=== PATIENT | female | born 1995 | race Caucasian/White ===

== ENCOUNTER 2023-09-14 10:56 | Inpatient (IN) | payer OTHER ==
[2023-09-14 12:05] LABS: Basophils % (A) 0 %; Eosinophils # (A) 0.1 k/uL (0-0.7); Eosinophils % (A) 1 %; HCT 32.3 % (34.0-46.0); HGB 10.6 gm/dL (11.4-16.0); Hypochromasia Slight; Lymphocytes % (A) 20 %; MCH 27.4 pg (25.0-35.0); MCHC 32.7 g/dL (31.0-37.0); MCV 83.6 fL (80.0-100.0); Mean Platelet Volume 9.3; Monocytes # (A) 0.5 k/uL (0-1.0); Monocytes % (A) 5 %; Neutrophils # (A) 7.5 k/uL (1.3-7.7); Neutrophils % (A) 73 %; Platelet Count 286 k/uL (150-450); Poikilocytosis Slight; RBC 3.87 m/uL (3.80-5.40); RDW 14.4 % (11.5-15.5); WBC 10.3 k/uL (3.8-10.6)
[2023-09-14 12:15] LABS: ALT 14 U/L (4-34); AST 21 U/L (14-36); African American GFR (CKD) >90 (>60 ml/min/1.73 sqM); Blood Urea Nitrogen 6 mg/dL (7-17); LDH 195 U/L (120-246); Non-African American GFR(CKD) >90 (>60 ml/min/1.73 sqM); Uric Acid 5.8 mg/dL (3.7-7.4)
[2023-09-14 12:20] LABS: Creatinine,Urine Random 31.8 mg/dL; Protein/Creatinine Ratio,Urine 0.377
[2023-09-14 12:53] LABS: Color,Urine Light Yellow
[2023-09-14 12:54] LABS: Appearance,Urine Clear (Clear)
[2023-09-14 13:03] LABS: Specific Gravity,Urine 1.003 (1.001-1.035)
[2023-09-14 13:09] LABS: Bilirubin,Urine Negative (Negative); Blood,Urine Negative (Negative); Glucose,Urine (UA) Negative (Negative); Ketones,Urine Negative (Negative); PH, Urine 6.5 (5.0-8.0); Protein,Urine Negative (Negative)
[2023-09-14 13:10] LABS: Leukocyte Esterase,Urine Negative (Negative); Nitrite,Urine Negative (Negative); Urobilinogen,Urine <2.0 mg/dL (<2.0)
[2023-09-14] MEDS ORDERED: LIDOCAINE 0.5% (PF) 5 MG/ML (50 ML SDV) SQ PRN (15:03)
[2023-09-14] MEDS ORDERED: TRANEXAMIC 1,000 MG/100ML-NACL 1,000 MG in EMPTY BAG 1 BAG IV PRN (15:03)
[2023-09-14] MEDS ORDERED: miSOPROStoL 200 MCG TAB PO PRN (15:03)
[2023-09-14] MEDS ORDERED: METHYLERGONOVINE 0.2 MG/ML 1 ML AMP IM PRN (15:03)
[2023-09-14] MEDS ORDERED: OXYTOCIN 10 UNIT/ML 1 ML VIAL IM PRN (15:03)
[2023-09-14] MEDS ORDERED: TERBUTALINE 1 MG/ML VIAL SQ PRN (15:03)
[2023-09-14] MEDS ORDERED: CARBOPROST TROMETHAMINE 250 MCG/ML 1 ML AMP IM PRN (15:03)
[2023-09-14] MEDS ORDERED: OXYTOCIN 30 UNITS/500 ML NS 30 UNIT in SALINE 1 500ML.BAG IV SCH (16:00)
[2023-09-14] MEDS: LACTATED RINGERS 1,000 ML IV SCH (21:42)
[2023-09-15] MEDS: LACTATED RINGERS 1,000 ML IV SCH ×4 (02:28→16:03)
--- NOTE | 2023-09-15 08:46 | P.HPOB ---
History of Present Illness H&P Date: 09/15/23 Chief Complaint: Medical induction of labor Ms. Hilliard is a 27 year old at 41 weeks and 2 days gestationan with EDC of 09/06/2023 (by LMP consistent with 12 week US) who presents for medical induction of labor for pre-eclampsia without severe features and post-dates. The patient denies headache, visual disturbances, and RUQ pain. PIH labs were remarkable for a P:C ratio of 0.3 but otherwise within normal limits. Blood pressures overnight since admission have been normotensive to mild-range. work-up: blood type O positive, antibody negative, rubella immune, HBsAg negative, HIV negative, gonorrhea negative, chlamydia negative, 1 hour GTT within normal limits, GBS negative. s/p TDap on 07/13/2023. Past Medical History Past Medical History: No Reported History History of Any Multi-Drug Resistant Organisms: None Reported Past Surgical History: No Surgical Hx Reported, Ear Surgery, Tonsillectomy Past Psychological History: No Psychological Hx Reported Smoking Status: Never smoker Past Alcohol Use History: None Reported Past Drug Use History: None Reported Medications and Allergies Home Medications Medication Instructions Recorded Confirmed Type No Known Home Medications 09/14/23 09/14/23 History Allergies Allergy/AdvReac Type Severity Reaction Status Date / Time Penicillins Allergy Rash/Hives Verified 09/14/23 11:33 Exam Vital Signs Temp Pulse Resp BP Pulse Ox 09/14/23 14:29 98.5 F 88 16 09/14/23 11:32 97.8 F 88 16 136/82 99 Intake and Output 09/14/23 09/15/23 09/15/23 22:59 06:59 14:59 Other: # Voids 2 1 Focused physical exam is performed. This is a healthy-appearing in no apparent distress. Breathing is non-labored. Abdomen is gravid and non-tender. Cervical exam is 3 cm, 70 effacement, -2 station. AROM is undertaken with minimal fluid noted. Extremeties non-tender and non-edematous. heart tones are Category I and tocometer is not graphing contractions well at this time. Results Result Diagrams: 09/14/23 11:45 09/14/23 11:45 Abnormal Lab Results - Last 24 Hours (Table) 09/14/23 09/14/23 Range/Units 11:45 11:45 Hgb 10.6 L (11.4-16.0) gm/dL Hct 32.3 L (34.0-46.0) % BUN 6 L (7-17) mg/dL Assessment and Plan Assessment: 27 year old at 41 weeks and 2 days being medically induced for pre- eclampsia without severe features and post-dates Plan: Admit, NPO, mIVF, pitocin per protocol, epidural prn, continuous EFM and tocometer, close monitoring of patient Time with Patient: Less than 30
[2023-09-15] MEDS ORDERED: NALBUPHINE 10 MG/ML (10 ML MDV) IV PRN (12:38)
[2023-09-15] MEDS ORDERED: ROPIVACAINE 5 MG/ML 30 ML VIAL ONE (15:27)
[2023-09-15] MEDS ORDERED: fentaNYL (PF) 50 MCG/ML 5 ML AMP ONE (15:27)
[2023-09-15] MEDS ORDERED: SODIUM CHLORIDE 0.9% 250 ML BAG ONE (15:27)
--- NOTE | 2023-09-15 16:08 | P.ANPRN ---
Procedure Note - Anesthesia - Epidural/Spinal Epidural Continuous Date of Procedure: 09/15/23 Procedure Start Time: 15:34 Procedure Stop Time: 15:45 Location of Patient: OB Indication: Analgesia, Requested by Surgeon Sedation Type: Sedate with meaningful contact maintained Preparation: Sterile Dressing Number of Attempts: 1 (At L1-L2 interspinous space) Position: Sitting Catheter Depth at Skin (cm): 12 (LOSS of resistance 7 cm) Catheter: Indwelling Needle Guage: 18 Injectate: 5ML of 1.5% lidocaine mixed with epinephrine 1:200K Blood Aspirated: No Pain Paresthesia on Injection Noted: No Events: Uneventful and Well Tolerated
[2023-09-15] MEDS ORDERED: ROPIVACAINE 225 MG, fentaNYL (PF). 450 MCG in SODIUM CHLORIDE 0.9% 171 ML EPIDURAL ONE (16:53)
[2023-09-15] MEDS ORDERED: miSOPROStoL 200 MCG TAB PO PRN ×2 (20:33→20:51)
[2023-09-15] MEDS ORDERED: METHYLERGONOVINE 0.2 MG/ML 1 ML AMP IM PRN ×2 (20:33→20:51)
[2023-09-15] MEDS ORDERED: CITRIC ACID-SODIUM CITRATE 15 ML CUP PO ONE ×2 (20:33→20:51)
[2023-09-15] MEDS ORDERED: TRANEXAMIC 1,000 MG/100ML-NACL 1,000 MG in EMPTY BAG 1 BAG IV PRN ×2 (20:33→20:51)
[2023-09-15] MEDS ORDERED: OXYTOCIN 10 UNIT/ML 1 ML VIAL IM PRN ×2 (20:33→20:51)
[2023-09-15] MEDS ORDERED: CARBOPROST TROMETHAMINE 250 MCG/ML 1 ML AMP IM PRN ×2 (20:33→20:51)
[2023-09-15] MEDS ORDERED: CLINDAMYCIN 900 MG in DEXTROSE 5% IN WATER 50 ML IVPB ONE ×2 (20:51)
[2023-09-15] MEDS ORDERED: AZITHROMYCIN 500 MG in SODIUM CHLORIDE 0.9% 250 ML IVPB STA (20:53)
[2023-09-15] MEDS ORDERED: ONDANSETRON 4 MG/2 ML VIAL ONE (21:03)
[2023-09-15] MEDS ORDERED: OXYTOCIN 30 UNITS/500 ML NS BAG IV ONE (21:03)
[2023-09-15] MEDS ORDERED: KETOROLAC 15 MG/ML 1 ML VIAL ONE (21:03)
[2023-09-15] MEDS ORDERED: MORPHINE SULFATE (PF) 0.3 MG/0.3 ML SYR ONE (21:03)
[2023-09-15] MEDS ORDERED: PHENYLEPHRINE 10 MG/ML VIAL ONE (21:03)
[2023-09-15] MEDS ORDERED: GENTAMICIN 300 MG in SODIUM CHLORIDE 0.9% 100 ML IVPB ONE (21:30)
[2023-09-15] MEDS ORDERED: SIMETHICONE 80 MG CHEWABLE PO PRN (22:03)
[2023-09-15] MEDS ORDERED: NALOXONE 0.4 MG/ML 1 ML VIAL IV PRN (22:03)
[2023-09-15] MEDS ORDERED: diphenhydrAMINE 50 MG CAP PO PRN (22:03)
[2023-09-15] MEDS ORDERED: METOCLOPRAMIDE 5 MG/ML 2 ML VIAL IVP PRN (22:03)
[2023-09-15] MEDS ORDERED: ONDANSETRON 4 MG/2 ML VIAL IVP PRN (22:03)
[2023-09-15] MEDS ORDERED: diphenhydrAMINE 50 MG/ML 1 ML VIAL IVP PRN ×2 (22:03)
[2023-09-15] MEDS ORDERED: diphenhydrAMINE 25 MG CAP PO PRN (22:03)
[2023-09-15] MEDS ORDERED: ZOLPIDEM 5 MG TAB PO PRN (22:03)
--- NOTE | 2023-09-15 22:03 | P.OP ---
Date of Procedure: 09/15/23 Preoperative Diagnosis: 1. Term IUP at 41 weeks 2. Gestational Hypertension 3. Persistent Category II Heart Tones Remote from Delivery Postoperative Diagnosis: Same Procedure(s) Performed: Primary Lower Transverse Section Implants: None Anesthesia: epidural Surgeon: Jillian Jo Psychiatric Social Worker Supervisor #1: Dina Ramos Estimated Blood Loss (ml): 375 IV fluids (ml): 1,000 Urine output (ml): 400 (clear yellow urine) Pathology: none sent Condition: stable Disposition: floor Indications for Procedure: Ms. Hilliard is a 27 year old at 41 weeks and 2 days who was being medically induced for newly diagnosed pre-eclampsia without severe features and post-dates. She had a labor dystocia and had been 7 centimeters for over 2 hours. There were persistent Category II Heart Tones remote from delivery. section was recommended for maternal and well-being. The risks, benefits, and alternatives to section were discussed with the patient including risk of bleeding, infection, damage to surrounding structures including bladder/bowels/ureters, and post-operative VTE. The patient understands these risks and desires to proceed with section. Operative Findings: Colorless amniotic fluid noted. Viable male infant in right occiput transverse presentation. Apgars at 1 and 5 minutes were 8,9 respectively. Weight was 7 pounds and 15 ounces (3790 grams). Normal uterus, fallopian tubes, and ovaries. Description of Procedure: The patient was taken to the operating room where spinal anesthesia was found to be adequate. IV Gentamicin, Clindamycin, and Ancef were given for infection prophylaxis. Vaginal prep was performed prior to the surgery. She was prepared and draped in the dorsal supine position with a leftward tilt. A Pfannenstiel skin incision was made with the scalpel. The incision was carried down to the fascia with a bovie. The fascia was incised and extended laterally with Arango scissors. The superior aspect of the fascia was grasped with Bari clamps. The underlying rectus muscle was dissected off sharply with Arango scissors. In a similar fashion, the inferior aspect of the fascia was elevated with Bari clamps and the rectus muscle and pyramidalis were dissected off. Excellent hemostasis was achieved with the bovie. The rectus muscle was in the midline down to the level of the pubic symphysis. Pre-peritoneal fatty tissue was bluntly dissected to expose the peritoneum. The peritoneum was found to be free of adherent bowel and entered sharply with Arango scissors. The peritoneal incision was extended superiorly and inferiorly to the bladder reflection with good visualization of the bladder. The bladder blade was inserted and vesicouterine peritoneum was identified. Intraabdominal survey revealed scant, clear peritoneal fluid and the thinned-out lower uterine segment. The vesicouterine peritoneum was opened with scissors and the bladder flap was developed. The bladder blade was repositioned to keep the bladder out of the operative field. The lower uterine segment was incised with a scalpel. The amniotic sac was ruptured with an Allis clamp and clear fluid was noted. The uterine incision was extended bluntly with lateral and upward traction. The fetus was in right occiput transverse position. The head was elevated out of the pelvis with special attention paid to avoid using the uterine incision as a fulcrum. Gentle fundal pressure was applied once the head was brought into the incision. The infant was delivered with no difficulty. The mouth and nose were suctioned with a bulb. The cord was clamped and cut. Infant was noted to be spontaneously crying. The infant was handed off to the hotel director. IV oxytocin was initiated to facilitate uterine contractions. The placenta was delivered intact with manual massage of uterine fundus. The uterus was then exteriorized and the inside of the uterus was gently wiped with a lap sponge to assure complete removal of placental membranes. The uterine incision was closed with a 0-Polysorb suture in a running locked fashion. A second imbricating layer of 0- Polysorb was placed along the incision. The ovaries and tubes were found to be normal. The uterus, tubes, and ovaries were then gently returned to the abdominal cavity. The blood clots and fluid were wiped out of the abdomen and pelvis with moist laparotomy sponges. The pelvis was copiously suction irrigated.The uterine incision was reinspected and excellent hemostasis was noted. The fascial layer was closed with a 0-Vicryl suture. The subcutaneous tissue was reapproximated with 2-0 Plain Gut. The skin was closed with 4-0 Monocryl in a subcuticular fashion.The patient tolerated the procedure well. All the counts were correct times two. The patient was taken to the recovery room in a stable condition.
[2023-09-15] MEDS ORDERED: LACTATED RINGERS 1,000 ML IV SCH (22:15)
[2023-09-16] MEDS ORDERED: ACETAMINOPHEN TAB 500 MG TAB PO SCH (01:15)
[2023-09-16] MEDS: KETOROLAC 15 MG/ML 1 ML VIAL IVP SCH ×2 (04:05→10:58)
--- NOTE | 2023-09-16 06:52 | P.PN ---
Progress Note - Text Progress Note Date: 09/16/23 Ms. Hilliard is a 27-year-old female had a history of under epidural. Patient received Astramorph 3g at the end of the procedure for postoperative pain control. Today patient is comfortable sitting in her bed. Today patient rated her pain level zero out of 10 in severity. Denied any fever, drowsiness, confusion. Denied any weakness, tingling sensation in her lower extremities. Denied any bowel or bladder problems. Moving all extremities without any difficulty, and able to walk without any difficulties. She is complaining of mild itching. As per patient which is bearable. She is complaining mild numbness in her right middle of the foot. As per her it is getting better compartment to last night, no weakness, able to move her ankle without any difficulty. Her ankle range of motion is within normal limits. Vitals: Hemodynamically stable Continue oral pain medication as per primary team. counseled her regarding gradual weaning off her numbness in her bottom of the right foot . If numbness not resolving in 4-6 hours please consult anesthesia.
[2023-09-16] MEDS ORDERED: SENNOSIDES-DOCUSATE SODIUM 1 EACH TAB PO SCH (08:00)
[2023-09-16 08:12] LABS: Basophils % (A) 0 %; Eosinophils # (A) 0.1 k/uL (0-0.7); Eosinophils % (A) 0 %; HCT 28.4 % (34.0-46.0); HGB 9.3 gm/dL (11.4-16.0); Hypochromasia Slight; Lymphocytes # (A) 1.9 k/uL (1.0-4.8); Lymphocytes % (A) 13 %; MCH 27.3 pg (25.0-35.0); MCHC 32.6 g/dL (31.0-37.0); MCV 83.8 fL (80.0-100.0); Mean Platelet Volume 8.3; Monocytes # (A) 0.9 k/uL (0-1.0); Monocytes % (A) 6 %; Neutrophils # (A) 11.4 k/uL (1.3-7.7); Neutrophils % (A) 79 %; Platelet Count 272 k/uL (150-450); Poikilocytosis Slight; RBC 3.39 m/uL (3.80-5.40); RDW 14.5 % (11.5-15.5); WBC 14.4 k/uL (3.8-10.6)
--- NOTE | 2023-09-16 08:27 | P.PNOBGPC ---
Subjective - Subjective Principal diagnosis: s/p primary section Interval history: The patient is doing well this morning and had no acute events overnight. She has no complaints this morning. She has yet to ambulate or void. Catheter was removed a few hours ago. She reports minimal lochia, eating/drinking without nausea or vomiting. She is formula-feeding her without difficulty. She denies chest pain, shortness of breathing, fevers, or chills overnight. She denies pain or swelling in the legs. Patient reports: Reports appetite normal, Reports pain well controlled [place]: doing well Objective - Vital Signs Latest vital signs: Vital Signs Temp Pulse Pulse Resp BP Pulse Ox 09/16/23 08:00 98.1 F 78 17 104/63 100 09/16/23 04:00 98.4 F 91 16 101/64 96 09/16/23 00:00 94 16 116/64 98 09/15/23 23:00 97 16 115/62 100 09/15/23 22:45 113 H 16 115/70 99 09/15/23 22:30 99 16 117/73 99 09/15/23 22:15 110 H 16 124/73 98 09/15/23 22:00 96.4 F L 130 H 115 H 16 96/50 97 Intake and Output 09/15/23 09/16/23 09/16/23 22:59 06:59 14:59 Output Total 775 907 Balance -775 -907 Output: Urine 400 800 Uretheral ([place]) 400 Estimated Blood Loss 375 Output, Quantitative 107 Blood Loss Other: Voiding Method Indwelling Catheter Indwelling Catheter # Voids 1 # Emeses 1 - Exam Extremities: Present: normal Abdomen: Present: normal appearance Incision: Present: normal, dressed Uterus: Present: normal - Labs Labs: Abnormal Lab Results - Last 24 Hours (Table) 09/16/23 Range/Units 07:49 WBC 14.4 H (3.8-10.6) k/uL RBC 3.39 L (3.80-5.40) m/uL Hgb 9.3 L (11.4-16.0) gm/dL Hct 28.4 L (34.0-46.0) % Neutrophils # 11.4 H (1.3-7.7) k/uL Assessment and Plan Assessment: 27 year old POD#1 s/p primary section 2/2 persistent Cat II FHTs remote from delivery Plan: 1. Postoperative. Patient meeting milestones appropriately, continue to monitor. 2. Pre-eclampsia w/o SF. Continue to monitor BPs. 3. Viable male at bedside. Doing well, plan for circ tomorrow. Dispo: Anticipate discharge home tomorrow.
[2023-09-16] MEDS: ACETAMINOPHEN ORAL SUSP (PEDS) 3,840 MG/120 ML BOTTLE PO SCH ×3 (08:49→21:33)
[2023-09-16] MEDS: DOCUSATE ORAL SOLN 100 MG/10 ML CUP PO SCH ×2 (08:50→21:32)
[2023-09-16] MEDS: SENNA LEAF EXTRACT SYRUP 528 MG/15 ML CUP PO SCH ×2 (08:51→21:31)
[2023-09-16 16:35] VITALS: RESP 16
[2023-09-16] MEDS: IBUPROFEN ORAL SUSP 100 MG/5 ML CUP PO SCH (18:27)
[2023-09-17] MEDS: IBUPROFEN ORAL SUSP 100 MG/5 ML CUP PO SCH ×3 (01:11→14:47)
[2023-09-17] MEDS: ACETAMINOPHEN ORAL SUSP (PEDS) 3,840 MG/120 ML BOTTLE PO SCH ×3 (05:03→17:01)
--- NOTE | 2023-09-17 08:38 | P.PNOBGPC ---
Subjective - Subjective Principal diagnosis: s/p primary section Interval history: The patient is doing well this morning and had no acute events overnight. She has no complaints this morning. She reports minimal lochia, passing flatus, voiding without difficulty, ambulating, and eating/drinking without nausea or vomiting. She is formula feeding her without difficulty. She denies chest pain, shortness of breathing, fevers, or chills overnight. She denies pain or swelling in the legs. She denies headache, visual disturbances, and right upper quadrant pain. Patient reports: Reports appetite normal, Reports voiding normally, Reports pain well controlled, Reports ambulating normally : other (in nursery) Objective - Vital Signs Latest vital signs: Vital Signs Temp Pulse Resp BP Pulse Ox 09/17/23 00:00 98.0 F 101 H 16 117/79 09/16/23 20:00 97.9 F 80 16 108/72 09/16/23 16:00 98.3 F 75 16 108/65 98 09/16/23 12:00 98.2 F 87 17 107/72 98 - Exam Extremities: Present: normal Abdomen: Present: normal appearance Incision: Present: normal, dry Uterus: Present: normal, firm Assessment and Plan Assessment: 27 year old POD#2 s/p primary section 2/2 persistent Cat II FHTs remote from delivery Plan: 1. Postoperative. Patient meeting milestones appropriately, continue to monitor. 2. Pre-eclampsia w/o SF. Continue to monitor BPs. 3. Viable male in nursery for hematemesis. Circumcision not yet completed 4. Social issues, c/SW. Patient has a legal guardian and a developmental delay. There is disagreement about who the baby should go home with and whether or not the FOB should be listed on the certificate. Dispo: Continue inpatient management.
[2023-09-17] MEDS: DOCUSATE ORAL SOLN 100 MG/10 ML CUP PO SCH (08:56)
[2023-09-17] MEDS: SENNA LEAF EXTRACT SYRUP 528 MG/15 ML CUP PO SCH (08:56)
[2023-09-17 15:03] VITALS: BP 132/79; PULSE 82; TEMP 97.9
--- NOTE | 2023-09-17 17:33 | P.DS ---
Providers Date of admission: 09/14/23 12:50 Expected date of discharge: 09/17/23 Attending physician: Jillian Jo MD Primary care physician: Stated None Hospital Course: Ms. Hilliard is a 27 year old now POD#2 s/p a primary section for pesistent category II heart tones remote from delivery. The patient has been meeting all postoperative milestones appropriately and has had an uncomplicated course. Of note, the patient has a significant social history in which she is developmentally delayed and her mother is her legal guardian. Social work has been working with the family to determine who the baby should go home with. In addition, a CPS complaint was filed. The patient is eating and drinking without nausea, ambulating without difficulty, passing flatus, and voiding without difficulty. The patient denies fevers, chills, heavy lochia, pain/swelling in the legs, headache, visual disturbances, and right upper quadrant pain. She would like discharge today because her infant has developed bright red hematemesis and is being transferred to [facility] in [place] for further work-up. She would plans to purchase over the counter liquid tylenol and motrin for pain control. She is aware of post- restrictions including no lifting heavier than 15 pounds for 6 weeks and pelvic rest for 6 weeks. She will follow up in the office in 1 week for a blood pressure check. Assessment: 27 year old POD#2 s/p primary section Patient Condition at Discharge: Good Plan - Discharge Summary Discharge Rx Participant: No New Discharge Prescriptions: No Action No Known Home Medications Discharge Medication List No Known Home Medications 09/14/23 [History] Follow up Appointment(s)/Referral(s): Jillian Jo MD [STAFF PHYSICIAN] - 1 Week (*call office to set up 1 week post op and blood pressure check *call office to set up 6 week appointment) Patient Instructions/Handouts: (DC) Discharge Disposition: HOME SELF-CARE
== END 2023-09-17 18:00 | disposition home or self-care (01) | DRG 788 ==
LOC: FBPOP 10:56 → EEVIPCON 12:50 → 4FBP 12:50
PROVIDERS: ADMIT Obstetrics & Gynecology; ATTEND Obstetrics & Gynecology
PROC: 10D00Z1 Extraction of Products of Conception, Low, Open Approach (ICD-10-PCS; principal; 2023-09-14)
PROC: 4A0HXCZ Measurement of Products of Conception, Cardiac Rate, External Approach (ICD-10-PCS; 2023-09-14)
DX: O14.04 Mild to moderate pre-eclampsia, complicating childbirth (principal); O76 Abnormality in fetal heart rate and rhythm complicating labor and delivery; O32.2XX0 Maternal care for transverse and oblique lie, not applicable or unspecified; O48.0 Post-term pregnancy; Z37.0 Single live birth; Z3A.41 41 weeks gestation of pregnancy; Z88.0 Allergy status to penicillin; O99.73 Diseases of the skin and subcutaneous tissue complicating the puerperium; L29.9 Pruritus, unspecified
CPT/HCPCS: 36415; 59025; 81003; 82565; 82570; 83615; 84156; 84450; 84460; 84520; 84550; 85025; 86850; 86900; 86901

== ENCOUNTER 2024-05-27 19:11 | Emergency (ER) | payer OTHER ==
[2024-05-27] MEDS ORDERED: SODIUM CHLORIDE 0.9% 1,000 ML BAG ONE (20:20)
--- NOTE | 2024-06-27 18:20 | US ---
EXAMINATION TYPE: Transabdominal DATE OF EXAM: 05/27/2024 10:02 PM COMPARISON: No comparison available on downtime PACS. CLINICAL INDICATION: Unknown, old with history of ; EXAM PERFORMED: Transvaginal (TV) and Transabdominal (TA) EXAM MEASUREMENTS: GESTATIONAL AGE / DATING Physician Established: ( weeks/ days) EDC: Dates by LMP: ( weeks/ days) EDC: Dates by First Scan: ( weeks/ days) EDC: Dates by Current Scan for: ( weeks/ days) EDC: MATERNAL ANATOMY Uterus: 11.3 x 4.9 x 6.4 Right Ovary: 2.6 x 1.6 x 2.2 Left Ovary: 2.2 x 1.4 x 1.8 Post CDS / Adnexa: Presence of free fluid: Minimal fluid Presence of corpus luteal cyst: Presence of subchorionic bleed: There may be a small subchorionic bleed measuring 2.0 x 1.1 x 1.1 cm. Bladder is sonolucent. GESTATION / SURVEY CRL: 11.54 (7 weeks/3 days) MSD: ( weeks/ days) Yolk Sac (normal less than 6mm): 0.47 cm Heart Rate: 167 bpm Rhythm: Regular IUP: Single Date of LMP: Beta HcG (if available): IMPRESSION: 1. Single intrauterine gestation estimated at 7 weeks 3 days gestation based on current crown-rump le ngth. Cardiac activity measures 167 bpm.
== END 2024-05-27 23:33 | disposition home or self-care (01) ==
LOC: EC 19:11
DX: O20.0 Threatened abortion (principal); Z3A.01 Less than 8 weeks gestation of pregnancy
CPT/HCPCS: 76801; 76817; 86850; 86900; 86901; 87086; 99284

== ENCOUNTER 2024-12-18 23:15 | Outpatient (CLI) | payer OTHER ==
[2024-12-19 00:59] VITALS: BP 138/83; PULSE 109; RESP 17; TEMP 97.7
== END 2024-12-19 00:45 | disposition home or self-care (01) ==
LOC: FBPOP 23:15
PROVIDERS: ATTEND Obstetrics & Gynecology
DX: Z53.9 Procedure and treatment not carried out, unspecified reason (principal)
CPT/HCPCS: 59025; G0463; 99213

== ENCOUNTER 2025-01-02 07:38 | Inpatient (IN) | payer OTHER ==
[2025-01-02] MEDS ORDERED: CARBOPROST TROMETHAMINE 250 MCG/ML 1 ML AMP IM PRN (10:00)
[2025-01-02] MEDS ORDERED: METHYLERGONOVINE 0.2 MG/ML 1 ML AMP IM PRN (10:00)
[2025-01-02] MEDS ORDERED: miSOPROStoL 200 MCG TAB PO PRN (10:00)
[2025-01-02] MEDS ORDERED: OXYTOCIN 10 UNIT/ML 1 ML VIAL IM PRN (10:00)
[2025-01-02] MEDS ORDERED: TRANEXAMIC 1,000 MG/100ML-NACL 1,000 MG in EMPTY BAG 1 BAG IV PRN (10:00)
[2025-01-02] MEDS: LACTATED RINGERS 1,000 ML IV SCH ×2 (10:17→14:33)
[2025-01-02 10:27] LABS: Anisocytosis Slight; Basophils % (A) 0 %; Eosinophils # (A) 0.1 k/uL (0-0.7); Eosinophils % (A) 1 %; HCT 32.5 % (34.0-46.0); HGB 10.2 gm/dL (11.4-16.0); Hypochromasia Marked; Lymphocytes # (A) 2.5 k/uL (1.0-4.8); Lymphocytes % (A) 21 %; MCH 23.2 pg (25.0-35.0); MCHC 31.4 g/dL (31.0-37.0); MCV 73.8 fL (80.0-100.0); Mean Platelet Volume 8.1; Microcytosis Slight; Monocytes # (A) 0.6 k/uL (0-1.0); Monocytes % (A) 5 %; Neutrophils # (A) 8.2 k/uL (1.3-7.7); Neutrophils % (A) 71 %; Platelet Count 425 k/uL (150-450); Poikilocytosis Slight; RBC 4.41 m/uL (3.80-5.40); RDW 16.7 % (11.5-15.5); WBC 11.6 k/uL (3.8-10.6)
[2025-01-02] MEDS: CITRIC ACID-SODIUM CITRATE 15 ML CUP PO ONE (11:54)
[2025-01-02] MEDS ORDERED: MORPHINE SULFATE (PF) 0.3 MG/0.3 ML SYR ONE (12:00)
[2025-01-02] MEDS ORDERED: NALBUPHINE (ANES) 10 MG/ML - 1 ML AMP ONE (12:00)
[2025-01-02] MEDS ORDERED: ONDANSETRON 4 MG/2 ML VIAL ONE (12:00)
[2025-01-02] MEDS ORDERED: KETOROLAC 15 MG/ML 1 ML VIAL ONE (12:00)
[2025-01-02] MEDS ORDERED: OXYTOCIN 30 UNITS/500 ML NS BAG IV ONE (12:00)
--- NOTE | 2025-01-02 12:01 | P.HPOB ---
History of Present Illness H&P Date: 01/02/25 Chief Complaint: Scheduled section Ms. Hilliard is a 29 year old at 39 weeks and 2 days gestation with EDC of 01/02/25 by LMP consistent with 13 week US who presents for scheduled repeat section. The has been uncomplicated. The fetus is estimated to weigh in the 35%ile based on a 32 week growth US. Obstetric history: 1 FTCS after failed induction of labor for gestational hypertension. work-up: blood type O positive, antibody screen negative, rubella immune, VDRL non-reactive, HBsAg negative, HIV negative, gonorrhea negative, chlamydia negative, 1 hour GTT elevated > 3 hour GTT wnl, GBS negative. Past Medical History Past Medical History: No Reported History History of Any Multi-Drug Resistant Organisms: None Reported Past Surgical History: No Surgical Hx Reported, Ear Surgery, Tonsillectomy Past Anesthesia/Blood Transfusion Reactions: No Reported Reaction Past Psychological History: No Psychological Hx Reported Smoking Status: Never smoker Past Alcohol Use History: None Reported Past Drug Use History: None Reported - Past Family History Father Family Medical History: Congestive Heart Failure (CHF) Medications and Allergies Home Medications Medication Instructions Recorded Confirmed Type Omeprazole 20 mg PO DAILY 12/18/24 12/18/24 History Ondansetron [Zofran] 4 mg PO Q12HR PRN 12/18/24 12/18/24 History Vit No.179/Iron/Folic 1 each PO DAILY 12/18/24 12/18/24 History [ Tablet] Allergies Allergy/AdvReac Type Severity Reaction Status Date / Time Penicillins Allergy Rash/Hives Verified 01/02/25 10:00 Exam Vital Signs Temp Pulse Resp BP Pulse Ox 01/02/25 09:59 97.8 F 109 H 18 149/82 98 Intake and Output 01/01/25 01/02/25 01/02/25 22:59 06:59 14:59 Other: Weight 90.265 kg Focused physical exam is performed. This is a healthy-appearing in no apparent distress. Breathing is non-labored. Abdomen is gravid and non-tender. Extremities non-tender and non-edematous. heart tones are reactive and reassuring on NST. Results Result Diagrams: 01/02/25 10:14 Abnormal Lab Results - Last 24 Hours (Table) 03/25/25 Range/Units 10:14 WBC 11.6 H (3.8-10.6) k/uL Hgb 10.2 L (11.4-16.0) gm/dL Hct 32.5 L (34.0-46.0) % MCV 73.8 L (80.0-100.0) fL MCH 23.2 L (25.0-35.0) pg RDW 16.7 H (11.5-15.5) % Neutrophils # 8.2 H (1.3-7.7) k/uL Assessment and Plan Assessment: 29 year old at 39 weeks presenting for scheduled repeat section Plan: Admit, NPO, initiate protocol
[2025-01-02] MEDS: OXYTOCIN 30 UNITS/500 ML NS 30 UNIT in SALINE 1 500ML.BAG IV SCH (12:56)
[2025-01-02] MEDS ORDERED: SIMETHICONE 80 MG CHEWABLE PO PRN (13:03)
[2025-01-02] MEDS ORDERED: LANOLIN CREAM 1 GM TUBE TOPICAL PRN (13:03)
[2025-01-02] MEDS ORDERED: diphenhydrAMINE 50 MG CAP PO PRN (13:03)
[2025-01-02] MEDS ORDERED: diphenhydrAMINE 25 MG CAP PO PRN (13:03)
[2025-01-02] MEDS ORDERED: ZOLPIDEM 5 MG TAB PO PRN (13:03)
[2025-01-02] MEDS ORDERED: NALOXONE 0.4 MG/ML 1 ML VIAL IV PRN (13:03)
[2025-01-02] MEDS ORDERED: ONDANSETRON 4 MG/2 ML VIAL IVP PRN (13:03)
--- NOTE | 2025-01-02 13:03 | P.OP ---
Date of Procedure: 01/02/25 Preoperative Diagnosis: 1. Term IUP at 39+ weeks 2. Prior Section 3. No desire for TOLAC Postoperative Diagnosis: Same Procedure(s) Performed: Repeat Lower Transverse Section Implants: None Anesthesia: spinal Surgeon: Jillian Jo Fuel Pilot Engineer #1: Aurora Watkins Estimated Blood Loss (ml): 307 IV fluids (ml): 500 Urine output (ml): 50 (clear urine) Pathology: none sent Condition: stable Disposition: floor Indications for Procedure: Ms. Hilliard is a 29 year old who presents for scheduled repeat section. The risks, benefits, and alternatives to section were discussed with the patient including risk of bleeding, infection, damage to surrounding structures including bladder/bowels/ureters, and post-operative VTE. The patient understands these risks and desires to proceed with section. Operative Findings: Colorless amniotic fluid. Viable male infant in cephalic presentation. Normal uterus, bilateral fallopian tubes, and ovaries. Description of Procedure: The patient was taken back to the operating room where spinal anesthesia was found to be adequate. Two grams of Ancef were given for infection prophylaxis. She was prepared and draped in the dorsal supine position with a leftward tilt. A Pfannenstiel skin incision was made with the scalpel. The incision was carried down to the fascia with a bovie. The fascia was incised and extended laterally with Arango scissors. The superior aspect of the fascia was grasped with the Bari clamps. The underlying rectus muscle was dissected off sharply with Arango scissors. In a similar fashion, the inferior aspect of the fascia was elevated with Bari clamps and the rectus muscle and pyramidalis were dissected off. Excellent hemostasis was achieved with the bovie. The rectus muscle was in the midline down to the level of the pubic symphysis. Pre- peritoneal fatty tissue was bluntly dissected to expose the peritoneum. The peritoneum was found to be free of adherent bowel and entered sharply with Arango scissors. The peritoneal incision was extended superiorly and inferiorly to the bladder reflection with good visualization of the bladder. The bladder blade was inserted and vesicouterine peritoneum was identified. Intraabdominal survey revealed scant, clear peritoneal fluid and the thinned-out lower uterine segment. The vesicouterine peritoneum was opened with scissors and the bladder flap was developed. The bladder blade was repositioned to keep the bladder out of the operative field. The lower uterine segment was incised with a scalpel. The amniotic sac was ruptured and clear fluid was noted. The uterine incision was extended bluntly with lateral and upward traction. The fetus was in cephalic presentation. The head was elevated out of the pelvis with special attention paid to avoid using the uterine incision as a fulcrum. Gentle fundal pressure was applied once the head was brought into the incision. The was delivered with no difficulty and was noted to be crying spontaneously. The mouth and nose were suctioned with a bulb. The cord was clamped and cut. The infant was handed off to the cherry picker operator. IV oxytocin was initiated to facilitate uterine contractions. The placenta was delivered intact with manual massage of uterine fundus. The uterus was then exteriorized and the inside of the uterus was gently wiped with a lap sponge to assure complete removal of placental membranes. The uterine incision was closed with 0-Vicryl suture in a running locked fashion. A second imbricating layer was placed with 0-Vicryl. The ovaries and tubes were found to be normal. The uterus, tubes, and ovaries were then gently returned to the abdominal cavity. The abdomen was copiously suction irrigated. The uterine incision was reinspected and excellent hemostasis was noted. The fascial layer was closed with a 0-Vicryl suture. The subcutaneous tissue was reapproximated with 2-0 Plain Gut. The skin was closed with 4-0 Monocryl in a subcuticular fashion.The patient tolerated the procedure well. All the counts were correct times two. The patient was taken to the recovery room in a stable condition. A physician surgical supply assistant was utilized for the entire procedure due to the need for tissue retraction, dissection of vital structures, prevention and management of blood loss, and reduction in overall operative and anesthesia time as is the standard of care.
[2025-01-02] MEDS ORDERED: KETOROLAC 15 MG/ML 1 ML VIAL IVP SCH (16:00)
[2025-01-02] MEDS: METOCLOPRAMIDE 5 MG/ML 2 ML VIAL IVP PRN (16:10)
[2025-01-02] MEDS: ACETAMINOPHEN IV (For NPO) 1,000 MG in EMPTY BAG 1 BAG IVPB STA (16:45)
[2025-01-02] MEDS: diphenhydrAMINE 50 MG/ML 1 ML VIAL IVP PRN (17:31)
[2025-01-02] MEDS: ACETAMINOPHEN TAB 500 MG TAB PO SCH (20:00)
[2025-01-02] MEDS: KETOROLAC 15 MG/ML 1 ML VIAL IVP SCH (20:43)
[2025-01-02] MEDS: SENNOSIDES-DOCUSATE SODIUM 1 EACH TAB PO SCH (22:06)
[2025-01-03] MEDS: diphenhydrAMINE 50 MG/ML 1 ML VIAL IVP PRN (00:34)
[2025-01-03 06:06] LABS: Anisocytosis Slight; Basophils % (A) 0 %; Eosinophils # (A) 0.1 k/uL (0-0.7); Eosinophils % (A) 1 %; HCT 29.7 % (34.0-46.0); HGB 9.2 gm/dL (11.4-16.0); Hypochromasia Marked; Lymphocytes # (A) 2.3 k/uL (1.0-4.8); Lymphocytes % (A) 17 %; MCH 23.5 pg (25.0-35.0); MCHC 31.1 g/dL (31.0-37.0); MCV 75.5 fL (80.0-100.0); Mean Platelet Volume 7.2; Microcytosis Slight; Monocytes # (A) 0.7 k/uL (0-1.0); Monocytes % (A) 5 %; Neutrophils # (A) 9.9 k/uL (1.3-7.7); Neutrophils % (A) 76 %; Platelet Count 355 k/uL (150-450); RBC 3.93 m/uL (3.80-5.40); RDW 16.8 % (11.5-15.5); WBC 13.1 k/uL (3.8-10.6)
--- NOTE | 2025-01-03 07:00 | P.PN ---
Progress Note - Text Progress Note Date: 01/03/25 Postoperative day 1 status post section under spinal anesthesia, and intrathecal morphine given for postoperative analgesia, patient doing well, there is no anesthesia related complications, Patient had no headache, vital signs stable , Assessment and plan= postop day 1 status post , doing well there is no anesthesia related complication.
--- NOTE | 2025-01-03 07:42 | P.PNOBGPC ---
Subjective - Subjective Principal diagnosis: s/p repeat section Interval history: The patient is doing well this morning and had no acute events overnight. She has no complaints this morning. She reports minimal lochia, passing flatus, ambulating, voiding, and eating/drinking without nausea or vomiting. She is breast feeding her without difficulty. She denies chest pain, shortness of breathing, fevers, or chills overnight. She denies pain or swelling in the legs. Patient reports: Reports appetite normal, Reports pain well controlled [place]: doing well Objective - Vital Signs Latest vital signs: Vital Signs Temp Pulse Resp BP Pulse Ox 01/03/25 04:00 98.5 F 89 16 130/81 98 01/03/25 00:00 98.6 F 91 16 133/85 98 01/02/25 20:00 98.8 F 91 16 132/82 97 01/02/25 16:00 99.1 F 90 16 115/74 95 01/02/25 14:55 97.6 F 84 16 121/74 98 01/02/25 14:40 98.7 F 83 16 125/77 97 01/02/25 14:25 98.2 F 81 18 119/69 99 01/02/25 14:10 97.0 F L 78 16 122/67 98 01/02/25 13:55 72 16 128/69 98 01/02/25 13:40 73 16 131/57 97 01/02/25 13:25 97.5 F L 74 16 124/69 97 01/02/25 13:10 97.8 F 74 16 118/65 97 01/02/25 12:55 97.7 F 88 16 126/60 98 01/02/25 09:59 97.8 F 109 H 18 149/82 98 Intake and Output 01/02/25 01/03/25 01/03/25 22:59 06:59 14:59 Output Total 125 500 Balance -125 -500 Output: Urine 125 500 - Exam Extremities: Present: normal Abdomen: Present: normal appearance, soft Incision: Present: normal, dry, dressed Uterus: Present: normal, firm - Labs Labs: Abnormal Lab Results - Last 24 Hours (Table) 01/02/25 01/03/25 Range/Units 10:14 05:33 WBC 11.6 H 13.1 H (3.8-10.6) k/uL Hgb 10.2 L 9.2 L (11.4-16.0) gm/dL Hct 32.5 L 29.7 L (34.0-46.0) % MCV 73.8 L 75.5 L (80.0-100.0) fL MCH 23.2 L 23.5 L (25.0-35.0) pg RDW 16.7 H 16.8 H (11.5-15.5) % Neutrophils # 8.2 H 9.9 H (1.3-7.7) k/uL Assessment and Plan Assessment: 29 year old now POD#1 s/p scheduled repeat section Plan: 1. Postoperative. Doing well, meeting all milestones. 2. Viable male infant. At bedside, formula feeding. No circumcision. Dispo: Anticipate discharge home on POD#2
[2025-01-03] MEDS: ACETAMINOPHEN IV (For NPO) 1,000 MG in EMPTY BAG 1 BAG IVPB STA (08:50)
[2025-01-03] MEDS: IBUPROFEN 800 MG TAB PO SCH (12:45)
[2025-01-04 00:09] VITALS: PULSE 82; RESP 18
--- NOTE | 2025-01-04 08:25 | P.DS ---
Providers Date of admission: 01/02/25 09:58 Expected date of discharge: 01/04/25 Attending physician: Jillian Jo MD Primary care physician: Stated None Hospital Course: 29 year old now POD#2 s/p repeat lower transverse section. The surgery was uncomplicated, please see the operative report. The patient is doing well this morning and had no acute events overnight. She has no complaints this morning. She reports minimal lochia, passing flatus, voiding without difficulty, ambulating, and eating/drinking without nausea or vomiting. doing well at bedside. She denies chest pain, shortness of breathing, fevers, or chills overnight. She denies pain or swelling in the legs. Postoperative restrictions are reviewed with the patient including pelvic rest for 6 weeks, no lifting heavier than 15 pounds for 6 weeks. The patient is encouraged to call the office if she experiences any heavy bleeding, foul-smelling discharge, breast complaints, or any if she has any other concerns. She will follow up in the office with in 2 weeks for postoperative exam. All questions are answered. Patient Condition at Discharge: Good Plan - Discharge Summary New Discharge Prescriptions: New Acetaminophen Tab [Tylenol] 650 mg PO Q6H PRN #30 tab PRN Reason: Mild Pain (Scale 1 To 3) Ibuprofen [Motrin] 600 mg PO Q6HR PRN #30 tab PRN Reason: Mild Pain (Scale 1 To 3) No Action Ondansetron [Zofran] 4 mg PO Q12HR PRN PRN Reason: Nausea Vit No.179/Iron/Folic [ Tablet] 1 each PO DAILY Omeprazole 20 mg PO DAILY Discharge Medication List Omeprazole 20 mg PO DAILY 12/18/24 [History] Ondansetron [Zofran] 4 mg PO Q12HR PRN 12/18/24 [History] Vit No.179/Iron/Folic [ Tablet] 1 each PO DAILY 12/18/24 [History] Acetaminophen Tab [Tylenol] 650 mg PO Q6H PRN #30 tab 01/04/25 [Rx] Ibuprofen [Motrin] 600 mg PO Q6HR PRN #30 tab 01/04/25 [Rx] Follow up Appointment(s)/Referral(s): Jillian Jo MD [STAFF PHYSICIAN] - 01/16/25 9:30 am (Post Appiontment 02-13-2025 at 09:30am) Activity/Diet/Wound Care/Special Instructions: Instructions 1. Do not begin any exercise program for 3 weeks. 2. Do not resume sexual relations for 6 weeks or longer if uncomfortable. 3. You may take tub baths or showers at any time. 4. You may use tampons if desired after 6 weeks. 5. Keep any areas repaired with stitches clean and dry. 6. If you are not nursing, wear a good fitting, supportive bra during the day and limit fluid intake for at least 1 week to prevent breast engorgement. 7. Call the office, , within the next week to make appointment for your 6 week checkup if it has not already been made. 8. Report any of the following occurrences to the doctor promptly: a. Heavy, excessive bleeding b. Chills, fever c. Burning or frequency of urination d. Pain or redness and breasts if nursing e. Increasing pain or swelling of vulva (stitches). In addition to the above instructions, the following additional should be follo wed: 1. No heavy lifting or straining (exercising) until after 6 week checkup. 2. Keep abdominal incision clean and dry: You may wear a dressing if more comfortable. 3. Make office appointment for 2 weeks after delivery date. Discharge Disposition: HOME SELF-CARE
[2025-01-04 08:43] VITALS: BP 134/82; TEMP 97.6
== END 2025-01-04 11:30 | disposition home or self-care (01) | DRG 540 ==
LOC: 4FBP 09:58 → EEVIPCON 12:00
PROVIDERS: ADMIT Obstetrics & Gynecology; ATTEND Obstetrics & Gynecology
PROC: 10D00Z1 Extraction of Products of Conception, Low, Open Approach (ICD-10-PCS; principal; 2025-01-02 12:00)
DX: O34.211 Maternal care for low transverse scar from previous cesarean delivery (principal); Z37.0 Single live birth; Z3A.39 39 weeks gestation of pregnancy; Z82.49 Family history of ischemic heart disease and other diseases of the circulatory system
CPT/HCPCS: 85025; 86850; 86900; 86901

== ENCOUNTER → 2025-04-04 | Outpatient (CLI) | payer OTHER ==
--- NOTE | 2025-04-05 07:20 | XR ---
EXAMINATION TYPE: XR lumbar spine 2 or 3V DATE OF EXAM: 04/04/2025 10:12 AM COMPARISON: None. CLINICAL INDICATION: Female, 29 years old with history of M99.03 SEGMENTAL AND SOMATIC DYSFUNCTION OF LUMBAR REGION, pain TECHNIQUE: 3 view(s) obtained. FINDINGS: There are 5 lumbar-type vertebral bodies. Pedicles are intact. Posterior L5-S1 disc height narrowing is present. Milder posterior disc space narrowing is present L3-4 L4-5. Disc heights are otherwise pr eserved. Vertebral body heights are preserved. No spondylolisthesis is evident. IMPRESSION: 1. Degenerative disc changes with posterior disc space narrowing lower lumbar spine [facility], , 04/05/2025 7:18 AM
== END | disposition home or self-care (01) ==
LOC: RADXRMAIN 09:48
PROVIDERS: ATTEND Family Medicine
DX: M99.03 Segmental and somatic dysfunction of lumbar region (principal); M51.360 Other intervertebral disc degeneration, lumbar region with discogenic back pain only
CPT/HCPCS: 72100